=== PATIENT | male | born 1945 | race Caucasian/White ===

== ENCOUNTER 2018-02-15 13:21 | Emergency (ER) | payer MEDICARE ==
--- NOTE | 2018-02-15 13:50 | ED ---
Extremity Problem HPI - General Source: patient, RN notes reviewed, old records reviewed Mode of arrival: ambulatory Limitations: no limitations <Lyric Segura - Last Filed: 02/15/18 14:46> <Terrence Jensen - Last Filed: 02/19/18 14:56> - General Chief complaint: Extremity Problem,Nontraumatic Stated complaint: Hematoma Time Seen by Provider: 02/15/18 13:34 - History of Present Illness Initial comments: 72-year-old male presents emergency room with a chief complaint of swelling over the medial aspect of the right knee. Patient reports that he has likely cross for 30 minutes and looked down and developed some swelling and pain. He reports that he had worsening swelling prior to arriving here. He reports no pain with range of motion of the knee or ankle. No trauma. He is on multiple blood thinners due to significant cardiac history. He denies any chest pain or shortness of breath. He came in for further fashion due to the swelling of the leg was concerned that it may be a blood clot. (Lyric Segura) - Related Data Allergies Allergy/AdvReac Type Severity Reaction Status Date / Time levofloxacin [From Levaquin] Allergy Anaphylaxis Verified 02/15/18 13:31 Review of Systems ROS Other: All systems not noted in ROS Statement are negative. <Lyric Segura - Last Filed: 02/15/18 14:46> ROS Other: All systems not noted in ROS Statement are negative. <Terrence Jensen - Last Filed: 02/19/18 14:56> ROS Statement: Those systems with pertinent positive or pertinent negative responses have been documented in the HPI. Past Medical History Past Medical History: Coronary Artery Disease (CAD), Cancer Additional Past Medical History / Comment(s): prostate CA, SVT History of Any Multi-Drug Resistant Organisms: None Reported Past Surgical History: Back Surgery, Heart Catheterization With Stent, Hernia Repair Additional Past Surgical History / Comment(s): cardiac ablation, right eye surgery Past Psychological History: No Psychological Hx Reported Smoking Status: Former smoker Past Alcohol Use History: Daily Past Drug Use History: None Reported <Lyric Segura - Last Filed: 02/15/18 14:46> General Exam Limitations: no limitations Head exam: Present: atraumatic, normocephalic, normal inspection Eye exam: Present: normal appearance, PERRL, EOMI. Absent: scleral icterus, conjunctival injection, periorbital swelling ENT exam: Present: normal exam, mucous membranes moist Neck exam: Present: normal inspection. Absent: tenderness, meningismus, lymphadenopathy Respiratory exam: Present: normal lung sounds bilaterally. Absent: respiratory distress, wheezes, rales, rhonchi, stridor Cardiovascular Exam: Present: regular rate, normal rhythm, normal heart sounds. Absent: systolic murmur, diastolic murmur, rubs, gallop, clicks GI/Abdominal exam: Present: soft, normal bowel sounds. Absent: distended, tenderness, guarding, rebound, rigid Extremities exam: Present: normal inspection, full ROM, normal capillary refill. Absent: tenderness, pedal edema, joint swelling, calf tenderness Right Upper Leg exam: Present: normal inspection, full ROM Knee exam: Present: tenderness, swelling (Chauncey has medial knee swelling and tenderness. Evidence of hematoma measuring 3 cm by 2cm. ). Absent: normal inspection Lower Leg exam: Present: normal inspection, full ROM Ankle exam: Present: normal inspection, full ROM Foot/Toe exam: Present: normal inspection, full ROM Neurovascular tendon exam: Present: no vascular compromise Gait: observed and normal Back exam: Present: normal inspection Neurological exam: Present: alert, oriented X3, CN II-XII intact Psychiatric exam: Present: normal affect, normal mood Skin exam: Present: warm, dry, intact, normal color. Absent: rash <Lyric Segura - Last Filed: 02/15/18 14:46> <Terrence Jensen - Last Filed: 02/19/18 14:56> - General Exam Comments Initial Comments: This is a 72-year-old male. Alert and oriented. No acute distress. (Lyric Segura) Vital Signs 02/15/18 02/15/18 13:27 14:58 Temperature 98.0 F 97.6 F Pulse Rate 70 69 Respiratory 18 16 Rate Blood Pressure 149/89 139/89 O2 Sat by Pulse 98 98 Oximetry Medical Decision Making - Radiology Data Radiology results: report reviewed <Lyric Segura - Last Filed: 02/15/18 14:46> <Terrence Jensen - Last Filed: 02/19/18 14:56> - Medical Decision Making Patient 72-year-old male present emergency Department chief complaint of swelling over the medial aspect of the right knee. He has evidence of what appears to be hematoma. He reports it feels like a burning sensation. Full range of motion of the knee. No pain within the knee joint. No trauma to the leg. It is neurovascularly intact. He reports it occurred after he was crossing of legs for 30 minutes. He is on multiple blood thinners. I did perform an ultrasound on the knee. There is no evidence of DVT. There is a 3 cm area of hematoma with no vascularity within the site. Discussed that he should perform, secondary that will go down over time. Likely just a hematoma and is worse because he is on blood thinners. He does have a lot of varicose veins as well. Patient understands treatment plan will comply. Return parameters were discussed. (Lyric Segura) Resident/PA attestation: I, Dr. Terrence Jensen, personally saw and examined the patient. I have reviewed and agree with the resident/PA findings, including all diagnostic interpretations and treatment plans as written unless otherwise stated. I was present for the thibodeaux portions of any procedures performed and inclusive time noted for any critical care statement. (Terrence Jensen) - Radiology Data Negatve FOR DVT. THERE IS A RIGHT MEDIAL COMPLEX AREA MEASURING 2.8 X 1.6 X 3.3 CM THAT DOES NOT ANSWER VASCULARITY. (Lyric Segura) Disposition Is patient prescribed a controlled substance at d/c from ED?: No When asked, does pt state using other controlled substances?: No If prescribed controlled substance>3 days was MAPS reviewed?: No If opioid is for acute pain is fill amount 7 days or less?: No If Rx opioid, was Start Talking consent form obtained?: No Time of Disposition: 14:49 <Lyric Segura - Last Filed: 02/15/18 14:46> <Terrence Jensen - Last Filed: 02/19/18 14:56> Clinical Impression: Hematoma, Hx of usp use of blood thinners Disposition: HOME SELF-CARE Condition: Good Instructions: Hematoma (ED) Additional Instructions: Patient is to apply warm compresses over the area. If the area seems to worsen or the swelling seems to worse please return to emergency department for further evaluation. Motrin Tylenol for pain. Referrals: Faizan Diaz MD [Primary Care Provider] - 1-2 days
--- NOTE | 2018-02-15 14:33 | US ---
EXAMINATION TYPE: US venous doppler duplex LE RT DATE OF EXAM: 02/15/2018 2:14 PM COMPARISON: NONE CLINICAL HISTORY: Pain. Right leg burning sensation, lump anterior medial knee, no injury or trauma. SIDE PERFORMED: Right TECHNIQUE: The lower extremity deep venous system is examined utilizing real time linear array sonog christina with graded compression, doppler sonography and color-flow sonography. VESSELS IMAGED: External Iliac Vein (EIV) Common Femoral Vein Deep Femoral Vein Greater Saphenous Vein * Femoral Vein Popliteal Vein Proximal Calf Veins (* superficial vessels) At lump, right anterior medial knee there is a complex area measuring 3.8 x 1.6 x 3.3 cm that does no t demonstrate vascularity. Right Leg: Negative for DVT Grayscale, color doppler, spectral doppler imaging performed of the deep veins of the lower extremiti es. There is normal flow, compressibility, vascular waveforms. IMPRESSION: No evident deep venous thrombosis at or above the right knee. Mixed echo focus at the l evel of the patient's palpable abnormality is indeterminate and could be related to prior hemorrhage, infection, difficult to exclude mass, consider MRI with and without contrast for better evaluation.
[2018-02-15 14:59] VITALS: BP 139/89; PULSE 69; RESP 16; TEMP 97.6
== END 2018-02-15 14:58 | disposition home or self-care (01) ==
LOC: EC 13:21
DX: S80.01XA Contusion of right knee, initial encounter (principal); M79.89 Other specified soft tissue disorders; Z79.01 Long term (current) use of anticoagulants; I25.10 Atherosclerotic heart disease of native coronary artery without angina pectoris; Z85.46 Personal history of malignant neoplasm of prostate; Z95.5 Presence of coronary angioplasty implant and graft; Z87.891 Personal history of nicotine dependence; Z88.1 Allergy status to other antibiotic agents
CPT/HCPCS: 99284